=== PATIENT | male | born 1990 | race Caucasian/White ===

== ENCOUNTER 2022-10-20 00:08 | Emergency (ER) | payer SELFPAY ==
[~2022-10-20] VITALS: Ht 170.2 cm; Wt 75.0 kg
[2022-10-20] MEDS ORDERED: TETANUS, DIPHTHERIA, PERTUSSIS VAC/PF 0.5ML (>10YR OLD) IM ONE ×2 (00:45→03:00)
[2022-10-20 01:03] LABS: CHLORIDE 113 mEq/L (98-107)
[2022-10-20 01:08] LABS: BASOPHILS % 0.4 % (0.0-2.0); EOSINOPHILS % 1.3 % (0.0-5.0); HEMATOCRIT. 43.6 % (42.0-52.0); HEMOGLOBIN. 14.7 g/dL (14.0-18.0); LYMPHOCYTES % 30.2 % (20.0-50.0); MEAN CORPUSCULAR HEMOGLOBIN 31.4 pg (28.0-32.0); MEAN CORPUSCULAR VOLUME 92.6 fL (80.0-94.0); MONOCYTES % 5.8 % (2.0-8.0); NEUTROPHILS % 62.3 % (40.0-76.0); PLATELET 209 x1000/uL (130-400); RED CELL DISTRIBUTION WIDTH 14.5 % (11.6-14.6)
[2022-10-20 01:32] LABS: ETHANOL BLOOD 368 mg/dL
[2022-10-20 02:50] VITALS: BP 130/70
== END 2022-10-20 03:01 ==
LOC: ER 00:08 → EDBD 00:08 → ER 03:01
DX: F10.129 Alcohol abuse with intoxication, unspecified (principal); Y90.8 Blood alcohol level of 240 mg/100 ml or more; S00.211A Abrasion of right eyelid and periocular area, initial encounter; F91.8 Other conduct disorders; R45.1 Restlessness and agitation; X58.XXXA Exposure to other specified factors, initial encounter; Y93.89 Activity, other specified; Z65.3 Problems related to other legal circumstances; Y92.89 Other specified places as the place of occurrence of the external cause
CPT/HCPCS: 36415; 80053; 80307; 80320; 80329; 84443; 85025; 90471; 90715; 99284; G0480